=== PATIENT | male | born 1965 | race Caucasian/White ===

== ENCOUNTER → 2017-06-18 | Outpatient (CLI) | payer MEDICARE, OTHER ==
--- NOTE | 2017-06-18 10:27 | US ---
EXAMINATION TYPE: US liver DATE OF EXAM: 06/18/2017 COMPARISON: US January 14, 2011 CLINICAL HISTORY: R94.5 ABN RESULTS OF LIVER. Takes multiple medications for HTN, mood, bowel, vitami ns, GERD; gallbladder removed. EXAM MEASUREMENTS: Liver Length: 13.7 cm Gallbladder Wall: surgically removed per caregiver's history CBD: 0.3 cm Right Kidney: 10.0 x 6.4 x 5.3 cm Pancreas: Obscured by bowel gas Liver: wnl as visualized and very small left lobe, primarily scanned intercostally due to overlying bowel gas Gallbladder: surgically absent Evidence for sonographic Grant's sign: No CBD: wnl Right Kidney: couple of microcalcifications noted and measured one noted at lower pole = 0.4 x 0.4 x 0.2cm There is suboptimal evaluation of pancreas similar to prior. Visualized liver is now heterogeneously hyperechoic in appearance . Evaluation for focal masses is suboptimal due to the heterogeneity. No in trahepatic ductal dilatation is seen. Technologist [place] 4 mm hyperechoic nonshadowing area lower al e level right kidney could reflect nonobstructing calculus. IMPRESSION: New heterogeneous hyperechoic appearance of liver could reflect product of diffuse fatty infiltration or underlying hepatocellular disease, imaging guided random biopsy for tissue analysis c an be performed if desired.
== END | disposition home or self-care (01) ==
LOC: RADUSWWP 08:05
PROVIDERS: ATTEND Family Medicine
DX: R94.5 Abnormal results of liver function studies (principal)
CPT/HCPCS: 76705